=== PATIENT | male | born 1975 | race Caucasian/White ===

== ENCOUNTER 2018-06-10 02:15 | Inpatient (IN) | payer OTHER ==
[~2018-06-10] VITALS: Ht 180.3 cm; Wt 127.9 kg
[~2018-06-10 02:15] MED LIST: ATENOLOL50 M1 PO; MELATONIN5 M7 PO
--- NOTE | 2018-06-10 15:52 | Admission Core Measures ---
Acute Coronary Syndrome (CM) ACS Core Measures Acute Coronary Syndrome Diagnosis No Congestive Heart Failure (NEW) CHF Core Measures Congestive Heart Failure Diagnosis No Cerebrovascular Accident CVA Core Measures CVA/TIA Diagnosis No Venous Thromboembolism VTE Core Gera (View Protocol) VTE Risk Factors Surgery No Mechanical VTE Prophylaxis d/t N/A MechProphylax Ordered No VTE Pharm Prophylaxis d/t NA PharmProphylax ordered Problem List As ranked by this Provider includes Assessment & Plan 1. Colon cancer HOME MEDS Home Med List Atenolol 50 MG TABLET 1 TAB PO DAILY BP (Reported) Melatonin 5 MG TABLET 1 TAB PO PRN SUPPLEMENT (Reported)
--- NOTE | 2018-06-10 16:21 | Operative Report ---
Operative/Inv Procedure Report Surgery Date: 06/10/18 Name of Procedure: 1. Robotic low anterior resection with colorectal anastomosis-difficult procedure 2. Laparoscopic diverting ileostomy 3. Rigid sigmoidoscopy 4. ICG(indocyanine green) evaluation of colon perfusion Pre-Operative Diagnosis: Rectosigmoid colon cancer Post-Operative Diagnosis: Rectosigmoid colon cancer-perforated Estimated Blood Loss: 50ml to 100ml Surgeon/Nephrologist: Ortiz Cifuentes Jr., DO Anesthesia: general endotracheal tube, block Monitors: Per routine IV Fluids: 2500ml crystalloid Implants: None Urine Output: 405 cc Drains: None Specimens: 1. Rectosigmoid with tumor 2. Portion of rectum re-resection of distal margin. Stitch rouse distal edge 3. Stapler noted as most distal margin Complications: None Condition: Good Operative Indication: This is a 43-year-old gentleman who had colonoscopy for the workup of GI bleeding and change of bowel habits. He was found to have a rectosigmoid nearly obstructing mass. The mass was not passable with the colonoscope. Mass was biopsy proven to be a carcinoma. Patient's metastatic workup was negative. Patient was also noted to have a large rectal polyp which was not removed. Preop I did a flexible sigmoidoscopy to evaluate the tumor and was able to remove the polyp completely. The polyp was an adenoma with dysplasia but no invasive cancer. Operative/Procedure Note Note: On the day before the patient's surgery he did a bowel prep at home including oral laxatives and oral antibiotics. The morning of the surgery he drank 12 ounces of apple juice prior to coming to the hospital. He received the usual surgery premedication. He was taken to the operating room and placed in supine position. Patient underwent induction of general anesthesia placement of endotracheal tube and Waddell catheter. A bilateral TAP blocks performed by the anesthesia service. Patient was then converted to lithotomy position in [facility]. The patient was secured to the bed with both arms tucked. The abdomen and perineum were prepped and draped in usual fashion. We gained access to the abdominal cavity using a Veress needle technique. There is needle was inserted in the mid clavicular line just subcostal on the left and the abdomen was insufflated to 15 mmHg. THe #3 camera port was placed to the right of the umbilicus. This port was blindly placed and then the 1 2 and 4 ports were placed under direct visualization. The #4 port was a 12 mm port and the others were all 8 mm robotic ports. A right lower quadrant 8 mm stylist assistant air seal port was also placed. The patient is very large and morbidly obese sister was very little working space in the abdominal cavity. The patient was placed in 20 Trendelenburg with slight right tilt. Laparoscopic exploration did not demonstrate evidence of metastasis however the tumor at the rectosigmoid appeared perforated invading the anterior pelvic wall. Invasion appear to be at the level of the bladder. I begin my dissection here. I excised a ring of peritoneum and fat around the area of perforation so as to not violate the tumor. This was a difficult dissection and took over 2 hours. Once this was completely free I noticed a area where the tumor had full-thickness perforated the bowel. The rectosigmoid was stuck again to the sigmoid more proximally. And as I pulled on the bowel and this part of tumor fractured and there was open portion of the bowel. I oversewed this area with a 20V lock Vicryl stitch to prevent any spillage of fecal material. Next I began a medial to lateral dissection. The rectosigmoid was held anteriorly and incised the peritoneum at the level of the sacral promontory to the right of the rectosigmoid. I was able to enter the avascular space of the posterior rectum and take this dissection down to the midportion of the rectum. Working medial to laterally and freed the mesorectum from the attachments to the left ureter and the iliac vessels. I took the lateral stalks of the rectum down with the vessel sealer first to the right and then to the left to about the midportion of the rectum. I took the white line of Toldt down for the entire sigmoid and descending colon to the proximal descending colon. This was done by blunt dissection and vessels. I also mobilized the rectosigmoid and sigmoid colon off Gerota's fascia. At this point the vascular pedicle was identified. This of course is the inferior mesenteric artery pedicle. The vessels were skeletonized distal to the level of the left colic artery. A robotic 45 mm white vascular stapler was then used to divide the pedicle. The vascular stump was completely hemostatic. At this point I chose my distal site of transection. I chose a site that appeared to be about 4 cm distal to the perforation some more in the upper portion of the rectum. The mesentery was cleared here with the electrocautery and vessel sealer. Once the wall was exposed a robotic RENETTA green loaded stapler was used to divide the bowel. At this point the transected end of the specimen was grasped with a locking clamp. The pneumoperitoneum was let down and a 5 cm supraumbilical midline incision was created. The fascia was divided in the midline and a wound protector was placed through this incision. I was able to easily extract the bowel through this wound protector. I chose my proximal site of transection. The mesentery was cleared here partly with electrocautery and larger bundles of tissue were ligated and divided with 2-0 Vicryl suture. I sharply divided the bowel and remove the specimen from the field. Which was a 28 EEA stapler for the anastomosis. A handsewn pursestring was performed in the open end of the bowel and the head of the interval was placed into the lumen of the bowel. There was a large volume of solid stool in the colon proximal to the transection consistent with at least partial obstruction. The pursestring was tied snugly around the PEG of the anvil. The bowel was reduced back into the abdominal cavity. At this point ICG was injected into the circulatory system. The bowel conduit was inspected and lit up cream with ICG consistent with good circulation. Next I took the specimen and opened on the back table. It appear to had about a 1 cm distal margin from the tumor which extended several centimeters beyond the area of perforation. Was not happy with this margins are decided to re-resect some portion of the rectum. The robot was redock. I mobilized the rectum further in the avascular plane posteriorly. I came around the rectum dividing lateral pedicles again. Once the bowel was completely exposed a RENETTA blue stapler was used to divide the bowel. 2 firings were required. The staple line appeared intact but was now at the level of the mid rectum. The specimen was extracted through the wound protector. At this point I did a flexible sigmoidoscopy. There was some residual stool that was irrigated and aspirated out of the rectum. The staple line appeared intact. We filled the pelvis with sterile water and tested the staple line again which did not show evidence of bubbling. Next the EEA sizers and then the EEA stapler was passed transanally. The spike emerged to the left of midline close to the corner of the RENETTA staple line. The 2 ends of the stapler were mated and the staple was completely closed and allowed to settle for 1 minute. Stapler was fired open and retrieved. We had 2 excellent donuts on the stapling device. The rectal staple Carmen was labeled as most distal margin. As this was now a mid rectal anastomosis and the dissection was difficult I decided to divert the patient. Laparoscopically the cecum was identified and I ran the terminal ileum back about 30 cm from the ileocecal valve. I made a small mesenteric window here and pulled a umbilical tape through this window. A locking grasper was used to hold the umbilical tape. The #3 port was then chosen as the ileostomy site. A sokaogon of skin and soft tissue was excised down to the level of fascia. Patient had a very thick abdominal wall proximally 6 inches thick. It took me some time to pull the bowel up through the incision to a level that was satisfactory for an ileostmoy. The fascia had to be dilated multiple times to get the bowel through and maintain its vascularity. Laparoscopically we inspected the bowel and unfortunately it was twisted. We try to untwisted and could not do this laparoscopically. I extended our extraction incision to about 15 cm. Was able to gently pull the bowel back down untwisted and dilate the fascia but more. At this point were able to pull the bowel back through the incision to the surface of the skin. Next the fascia at the extraction site was closed with a running #1 looped PDS suture. The subcu tissue was copiously irrigated and the skin surface was closed with skin jeffy. The 4 remaining ports were closed with subcuticular 4 -0 Monocryl and then skin glue. Next large-bore Waddell catheter was pulled through the small bowel mesenteric defect where the umbilical tape had been to be used as a stoma bridge. The bowel was opened transversely and a Shavon ileostomy was created with 3-0 Vicryl suture. The tails of the Waddell catheter were tied together after being cut to the appropriate length. A Waddell catheter was also secured to the skin to secure the stoma bridge. The abdomen was cleansed and dried. A island dressing was placed over the extraction incision. A stoma appliance placed over the ileostomy. The patient tolerated the procedure well. He was extubated in the operating room and taken to recovery area in good condition. At the end of this operation all needle sponges and regimens were accounted for. Findings: 1. Colon to mid rectal anastomosis 2. Perforated rectosigmoid colon cancer 3. Good perfusion to colon conduit by ICG evaluation 4. Rectal stump and anastomotic staple lines airtight Discharge Disposition: Same Day Admissions
--- NOTE | 2018-06-10 16:38 | Patient Discharge Instructions ---
Discharge Instructions General Discharge Information You were seen/treated for: Rectosigmoid colon cancer-perforated You had these procedures: 1. Robotic low anterior resection with colorectal anastomosis-difficult procedure 2. Laparoscopic diverting ileostomy 3. Rigid sigmoidoscopy 4. ICG(indocyanine green) evaluation of colon perfusion Watch for these problems: Increased pain, fever, chills, redness, swelling or drainage from incisions Call Surgeon to remove: Shanice Do not soak the wound: Yes Other wound care: Keep incisions clean and dry Change dressings as needed daily Special Instructions: Take Lovenox daily for 1 week for clot prevention Please follow up with Dr. Sesay in 2 weeks Take Cholestyramine packet twice daily and Imodium as needed for diarrhea Diet Continue normal diet: Yes Recommended Diet: Per dietitian instructions Activity Full Activity/No Limits: No Activity Self Limited: Yes Pounds, do NOT lift more than: 10 Other activity limits: No heavy lifting or strenous activity Acute Coronary Syndrome Inclusion Criteria At DC or during hospital stay patient has or had the following: ACS DIAGNOSIS No Discharge Core Measures Meds if any: Prescribed or Continued at Discharge Meds if any: NOT Prescribed or Continued at Discharge Congestive Heart Failure Inclusion Criteria At DC or during hospital stay patient has or had the following: CHF DIAGNOSIS No Discharge Core Measures Meds if any: Prescribed or Continued at Discharge Meds if any: NOT Prescribed or Continued at Discharge Cerebrovascular accident Inclusion Criteria At DC or during hospital stay patient has or had the following: CVA/TIA Diagnosis No Discharge Core Measures Meds if any: Prescribed or Continued at Discharge Meds if any: NOT Prescribed or Continued at Discharge Venous thromboembolism Inclusion Criteria VTE Diagnosis No VTE Type NONE VTE Confirmed by (Test) NONE Discharge Core Measures - Per Current guidelines, there needs to be overlap - treatment for the first 5 days of Warfarin therapy. - If discharged on Warfarin prior to 5 days of - overlap therapy, the patient will need to be - assessed for post discharge needs including - *Post discharge parental anticoagulation - *Warfarin and/or parental anticoagulation education - *Follow up date to check INR post discharge At least 5 days overlap therapy as Inpatient No Meds if any: Prescribed or Continued at Discharge Note: Overlap Therapy is Warfarin and Anticoagulant Meds if any: NOT Prescribed or Continued at Discharge
--- NOTE | 2018-06-10 16:44 | Surgical Discharge Summary ---
Visit Information Visit Dates Admission Date: 06/10/18 Discharge Date: 06/15/18 History of Present Illness Chief Complaint: Colon cancer Medical History Cardiovascular: hypertension Gastrointestinal: Colon ca Blood Disorders: Factor V Leiden Surgical History Pertinent Surgical History: Robotic LAR, diverting ileostomy 06/10/18 Review of Systems: Refer to H&P Hospital Course Course Attending Physician: Ortiz Cifuentes Jr., DO Primary Care Physician: Dalton ABRAHAM,[facility] Course: Patient presented electively for a robotic low anterior resection and colorectal anastomosis with laparoscopic diverting ileostomy for perforated rectosigmoid colon cancer. He was placed on ERAS protocol and was maintained on IV antibitoics, Rocephin and Flagyl due to perforated colon cancer. Lovenox was given for DVT prevention due to history of Factor V Leiden. His diet was advanced and tolerated with return of ileostomy function. Wound nurse consult was obtained. His hospitalization was prolonged due to leaking ileostomy appliance, which resolved prior to discharge. Throughout his hospital course, vital signs remained stable and within normal limits, pain was adequately controlled and he was deemed appropriate for discharge home with VNA services for ostomy wound care. Allergies: Coded Allergies: No Known Allergies (06/09/18) Significant Procedures: 1. Robotic low anterior resection with colorectal anastomosis 2. Laparoscopic diverting ileostomy 3. Rigid sigmoidoscopy 4. ICG (indocyanine green) evaluation of colon perfusion Disposition Summary Disposition Principal Diagnosis: Perforated rectosigmoid colon cancer Additional Diagnosis: Same Discharge Disposition: home health services Discharge Instructions General Discharge Information Code Status: Full Code Patient's Diet: Regular, as per counterintelligence agent Patient's Activity: Ambulate Follow-Up Instructions/Appts: 1-2 weeks or sooner with concerns Medications at Discharge Discharge Medications: Continue taking these medications: Atenolol (Atenolol) 50 MG TABLET 1 Tablet ORAL DAILY Melatonin (Melatonin) 5 MG TABLET 1 Tablet ORAL as needed for SUPPLEMENT Start taking the following new medications: Oxycodone HCl (Oxycodone HCl) 5 MG TABLET 5-10 Milligram ORAL EVERY 4-6 HOURS NEEDED as needed for PAIN 7-10 Qty = 30 No Refills Instructions: . Tramadol HCl (Tramadol HCl) 50 MG TABLET 50 Milligram ORAL EVERY SIX HOURS as needed for PAIN 1-6 Qty = 30 No Refills Instructions: . Enoxaparin Sodium (Lovenox) 40 MG/0.4 ML SYRINGE 0.4 Milliliters SC DAILY Qty = 7 No Refills Instructions: . Cholestyramine/Aspartame (Questran Light Powder) 4 GRAM POWDER 1 Packet ORAL TWICE DAILY Qty = 30 No Refills Instructions: ADD AT LEAST 2-3 OZ OF WATER OR NON-CARBONATED BEVERAGE Loperamide HCl (Imodium A-D) 2 MG TABLET 2 Milligram ORAL THREE TIMES DAILY as needed for DIARRHEA Qty = 30 No Refills Acetaminophen (Tylenol Extra Strength) 500 MG TABLET 1 Tablet ORAL THREE TIMES DAILY as needed for PAIN Qty = 30 No Refills
[2018-06-10 18:18] VITALS: BP 130/70
--- NOTE | 2018-06-10 18:48 | PN- General Surgery ---
Subjective Subjective: Mild to moderate pain lower abdominal region. Recovering well from anesthesia and postoperatively. No other complaints. No nausea vomiting Objective Vital Signs and I&Os Vital Signs Date Time Temp Pulse Resp B/P B/P Pulse O2 O2 Flow FiO2 Mean Ox Delivery Rate 06/10 1818 98.7 78 18 130/70 97 Room Air Intake & Output 06/10 1600 06/10 0800 06/10 0000 06/09 1600 06/09 0800 06/09 0000 Intake Total Output Total Balance Patient 283 lb Weight Physical Exam: Well-developed well-nourished no apparent distress. HEENT: Atraumatic, extraocular motion intact Neck: Supple, no lymphadenopathy Respiratory: No respiratory distress Abdomen: Mild distention, obese. Small amount of bloody drainage on dressing. Small amount of thin bloody drainage in the ileostomy bag. No significant air in the bag. Stoma is not retracted, stoma is pink and moist Appropriate abdominal tenderness throughout Extremities: No edema, no calf pain Neuro: Alert and oriented x3 Psych: Mood affect normal, normal memory normal judgment. Skin: Warm and dry, no rash on exposed skin Assessment/Plan Assessment/Plan Postop day #0 status post Robotic low anterior resection with colorectal anastomosis, Laparoscopic diverting ileostomy, Rigid sigmoidoscopy Secondary to rectosigmoid colon cancer-perforated ERAS protocol Clears, advance diet as tolerated Continue IV fluids Continue Waddell until tomorrow Perioperative antibiotics DVT prophylaxis with Lovenox 40 mg subcu twice daily secondary to factor V Leiden ALPS for DVT ppx Entereg until bowel movement Neurontin as part of ERAS Out of bed, ambulate Pain medication as needed Monitor for return of bowel function Follow a.m. labs Dressing change postop day 2 Core Measures Venous Thromboembolism VTE Risk Factors Surgery No Mechanical VTE Prophylaxis d/t N/A MechProphylax Ordered No VTE Pharm Prophylaxis d/t NA PharmProphylax ordered
[2018-06-10 22:55] VITALS: BP 140/62
[2018-06-11 01:34] VITALS: BP 146/78
[2018-06-11 05:30] VITALS: BP 132/76
--- NOTE | 2018-06-11 07:58 | PN- General Surgery ---
Surgical Brief Attending Note Brief Attending Note: Patient is postop day 1 from robotic assisted low anterior resection with diverting loop ileostomy for perforated rectosigmoid colon cancer Patient's pain is reasonably controlled today AVSS Abdomen is soft Right lower quadrant ileostomy producing liquid stool Waddell with abundant clear urine Impression: Patient overall doing well Plan: Hep-Lock IV and advance to full liquids Keep Waddell for 1 more day second to low pelvic dissection and dissection of the bladder Please draw a routine postop labs CBCs and Chem-7 Make sure patient is on subcu Lovenox for factor V Leiden disease Continue ERAS meds : Tylenol , Neurontin, Entereg
[2018-06-11 09:53] LABS: ABSOLUTE BASOPHIL COUNT 0 /CUMM (0.0-0.2); ABSOLUTE EOSINOPHIL COUNT 0 /CUMM (0.0-0.7); ABSOLUTE GRANULOCYTE CT 12.3 /CUMM (1.4-6.5); ABSOLUTE LYMPH COUNT 1.7 /CUMM (1.2-3.4); ABSOLUTE MONOCYTE COUNT 1.6 /CUMM (0.10-0.60); BASOPHIL % 0.1 % (0.0-2.0); EOSINOPHIL % 0 % (0-5); HEMATOCRIT 41.9 % (42-52); MEAN CORPUSCULAR HGB 29.2 PG (27.0-31.0); MEAN CORPUSCULAR HGB CONC 33.5 G/DL (33.0-37.0); MEAN PLATELET VOLUME 8.2 FL (7.4-10.4); PLATELET COUNT 280 /CUMM (130-400); RBC DISTRIBUTION WIDTH 14.3 % (11.5-14.5); RED BLOOD CELL CT 4.81 /CUMM (4.70-6.10); WHITE BLOOD CELL COUNT 15.6 /CUMM (4.8-10.8)
[2018-06-11 15:27] VITALS: BP 112/64
[2018-06-11 22:16] VITALS: BP 120/72
[2018-06-12 07:26] VITALS: BP 136/80
--- NOTE | 2018-06-12 07:44 | PN- General Surgery ---
See Addendum Subjective Subjective: Patient reports crampy abdominal pain which is somewhat controlled with pain regimen. He reports intermittent nausea/dry heaving unrelated to fulls. He reports bilious drainage from his ostomy, denies gas. He reports ambulating in the halls. He reports fever yesterday, denies chills, chest pain, sob. Objective Vital Signs and I&Os Vital Signs Date Time Temp Pulse Resp B/P B/P Pulse O2 O2 Flow FiO2 Mean Ox Delivery Rate 06/12 726 98.9 71 20 136/80 95 06/11 2216 98.9 85 19 120/72 94 Room Air 06/11 2154 98.9 06/11 2010 101.4 06/11 1527 100.4 79 18 112/64 96 Room Air 06/11 0926 70 132/76 Intake & Output 06/12 0000 06/11 1600 06/11 0806/11 0000 06/10 1600 Intake Total 440 340 652 550 650 Output Total 858 462 9084 1375 250 Balance 40 60 -1048 -825 400 Intake, IV 200 100 252 500 50 Intake, Oral 240 240 400 50 600 Output, Stool 150 25 Output, Urine 974 214 6145 1350 250 Patient 283 lb Weight Physical Exam: Gen - resting comfortably in nad Cardiac - S1S2 noted Lungs - CTAB Abd - soft, obese, ileostomy appliance leaking from lateral and medial side, reinforced, stoma is red with bilious mucus drainage, midline incision closed with jeffy and matress sutures with no signs of drainge or infection, redressed, faint bowel sounds, appropriately tender evans-incisionally, no rebound or guarding noted - stack with clear urine Ext - alps in place, no edema or calf pain Current Medications: Current Medications Sig/Taras Start time Last Medication Dose Route Stop Time Status Admin Acetaminophen 1,000 MG TID 06/10 2100 AC 06/11 PO 2009 Alvimopan 12 MG Q12H 06/10 1900 AC 06/12 PO 612 Atenolol 50 MG DAILY 06/11 09 AC 06/11 PO 09 Cefazolin Sodium 2 GM IQ8 06/12 08 AC N/A 1 UNIT IV 06/13 0759 Cefazolin Sodium 2 GM IQ8 06/11 0000 DC 06/11 N/A 1 UNIT IV 06/12 0000 2320 Dextrose/Sodium 1,000 ML .Q20H 06/10 181 DC 06/10 Chloride IV 1842 Docusate Sodium 100 MG DAILY 06/11 09 AC 06/11 PO 09 Enoxaparin Sodium 40 MG BID 06/11 09 AC 06/11 SC 2155 Gabapentin 300 MG Q8 06/10 2200 AC 06/12 PO 0613 Melatonin 5 MG AT BEDTIME 06/10 2100 AC 06/11 PO 2155 Metronidazole 500 MG IQ8 06/12 0800 AC N/A 1 UNIT IV 06/13 0759 Metronidazole 500 MG IQ8 06/11 0000 DC 06/11 N/A 1 UNIT IV 06/12 0000 2351 Ondansetron HCl 4 MG Q6P PRN 06/10 181 AC 06/12 IV 0447 Oxycodone HCl 5 MG Q4-6 PRN PRN 06/10 181 AC PO Oxycodone HCl 10 MG Q4-6 PRN PRN 06/10 181 AC 06/11 PO 2010 Tramadol HCl 100 MG Q6P PRN 06/10 181 AC 06/11 PO 2158 Tramadol HCl 50 MG Q6 PRN 06/10 1615 AC 06/11 PO 1852 Results Last 48 Hours of Labs: Laboratory Tests 06/11 0800 Chemistry Sodium (137 - 145 mmol/L) 135 L Potassium (3.5 - 5.1 mmol/L) 4.4 Chloride (98 - 107 mmol/L) 103 Carbon Dioxide (22 - 30 mmol/L) 27 Anion Gap (5 - 16) 5 BUN (9 - 20 mg/dL) 10 Creatinine (0.7 - 1.2 mg/dL) 0.6 L Estimated GFR (>60 ml/min) > 60 BUN/Creatinine Ratio (7 - 25 %) 16.7 Hematology CBC w Diff NO MAN DIFF REQ WBC (4.8 - 10.8 /CUMM) 15.6 H RBC (4.70 - 6.10 /CUMM) 4.81 Hgb (14.0 - 18.0 G/DL) 14.0 Hct (42 - 52 %) 41.9 L MCV (80.0 - 94.0 FL) 87.0 MCH (27.0 - 31.0 PG) 29.2 MCHC (33.0 - 37.0 G/DL) 33.5 RDW (11.5 - 14.5 %) 14.3 Plt Count (130 - 400 /CUMM) 280 MPV (7.4 - 10.4 FL) 8.2 Gran % (42.2 - 75.2 %) 79.0 H Lymphocytes % (20.5 - 51.1 %) 10.9 L Monocytes % (1.7 - 9.3 %) 10.0 H Eosinophils % (0 - 5 %) 0 Basophils % (0.0 - 2.0 %) 0.1 Absolute Granulocytes (1.4 - 6.5 /CUMM) 12.3 H Absolute Lymphocytes (1.2 - 3.4 /CUMM) 1.7 Absolute Monocytes (0.10 - 0.60 /CUMM) 1.6 H Absolute Eosinophils (0.0 - 0.7 /CUMM) 0 Absolute Basophils (0.0 - 0.2 /CUMM) 0 Assessment/Plan Assessment/Plan 43 M w/ HTN and factor V Leiden who is POD 2 s/p robotic LAR with colorectal anastomosis and diverting ileostomy secondary to perforated rectosigmoid colon cancer with expected postop pain and nausea Cont fulls Likely advance to lfd for lunch ERAS protocol Analgeiscs/antiemetics prn Cont abx in setting of perf bowel DVT ppx - alps, lovenox 40 mg bid Entereg until stool Ostomy teaching Home meds on board OOB ambulate D/c stack today Follow a.m. labs Daily dressing changes Anticipate d/c in 24-48 hours Will d/w Dr. Cifuentes Core Measures Venous Thromboembolism VTE Risk Factors Surgery No Mechanical VTE Prophylaxis d/t N/A MechProphylax Ordered No VTE Pharm Prophylaxis d/t NA PharmProphylax ordered
[2018-06-12 12:04] LABS: ABSOLUTE BASOPHIL COUNT 0 /CUMM (0.0-0.2); ABSOLUTE EOSINOPHIL COUNT 0 /CUMM (0.0-0.7); ABSOLUTE GRANULOCYTE CT 17.5 /CUMM (1.4-6.5); ABSOLUTE LYMPH COUNT 0.9 /CUMM (1.2-3.4); ABSOLUTE MONOCYTE COUNT 1.1 /CUMM (0.10-0.60); BASOPHIL % 0.1 % (0.0-2.0); EOSINOPHIL % 0 % (0-5); GRANULOCYTE % 89.4 % (42.2-75.2); HEMATOCRIT 41.6 % (42-52); MEAN CORPUSCULAR HGB 28.5 PG (27.0-31.0); MEAN CORPUSCULAR HGB CONC 32.7 G/DL (33.0-37.0); MEAN CORPUSCULAR VOLUME 87.3 FL (80.0-94.0); MEAN PLATELET VOLUME 8.4 FL (7.4-10.4); PLATELET COUNT 285 /CUMM (130-400); RBC DISTRIBUTION WIDTH 14.6 % (11.5-14.5); RED BLOOD CELL CT 4.77 /CUMM (4.70-6.10)
[2018-06-12 12:30] LABS: WHITE BLOOD CELL COUNT 19.6 /CUMM (4.8-10.8)
[2018-06-12 14:46] VITALS: BP 140/80
[2018-06-12 22:19] VITALS: BP 142/82
[2018-06-13 06:15] VITALS: BP 126/78
--- NOTE | 2018-06-13 07:00 | PN- Student ---
Megan Encinas 06/13/18 0655: Subjective Subjective: This morning, the pt is doing well. He states that his pain in well controlled. He has been oob and ambulating over the past two days. Waddell is out, pt is voiding on his own. Pt hasn't had any additional episodes of nausea, denies vomiting as well. Tolerating his clear liquid diet over past 24 hrs. No flatus from bag yet, some bilious liquid output present. Pt's only concern at this time was his leaking ostomy bag. He denies cp,sob. Objective Objective: Physical Exam: Gen: O&Ax3, laying in bed, comfortable, in no apparent distress Lungs: CTA Heart: RRR, s1 and s2 normal Abdomen: soft, hypoactive bs, nt/nd, midline incision w/ jeffy and dressing c/ d/i. ileostomy bag leaking from lateral and inferior portions, bag reinforced with tape on all sides LE: nontender, soft, warm/dry skin, ALPS in place Results Results: Vital Signs Date Time Temp Pulse Resp B/P B/P Pulse O2 O2 Flow FiO2 Mean Ox Delivery Rate 06/13 0615 98.7 59 18 126/78 96 Room Air 06/12 2219 99.2 66 20 142/82 95 Room Air 06/12 1446 98.3 80 20 140/80 95 Room Air 06/12 0951 71 136/80 06/12 0726 98.9 71 20 136/80 95 06/11 2216 98.9 85 19 120/72 94 Room Air 06/11 2154 98.9 06/11 2010 101.4 06/11 1527 100.4 79 18 112/64 96 Room Air 06/11 0926 70 132/76 06/11 0530 99.2 70 18 132/76 96 Room Air 06/11 0134 98.5 83 18 146/78 94 Room Air 06/11 0000 94 Room Air 06/10 2255 99.4 86 20 140/62 96 06/10 2202 Room Air Room Air 06/10 1818 98.7 78 18 130/70 97 Room Air Last 24 Hours I&Os 06/13 0800 / 0000 06/12 1600 Intake Total 840 800 Output Total 300 450 Balance 540 350 Intake, IV 600 400 Intake, Oral 240 400 Output, Urine 300 450 Laboratory Tests 06/12/18 1020: CBC w Diff NO MAN DIFF REQ, RBC 4.77, MCV 87.3, MCH 28.5, MCHC 32.7 L, RDW 14.6 H, MPV 8.4, Gran % 89.4 H, Lymphocytes % 4.8 L, Monocytes % 5.7, Eosinophils % 0, Basophils % 0.1, Absolute Granulocytes 17.5 H, Absolute Lymphocytes 0.9 L , Absolute Monocytes 1.1 H, Absolute Eosinophils 0, Absolute Basophils 0 Microbiology Date/Time Procedure - Status Source Growth 06/10 0758 Urine Culture - COMP URINE ROUT Orders Procedure Date/time Status CBC WITHOUT DIFFERENTIAL 06/13 0600 Active BASIC ELECTROLYTES PLUS BUN&CR 06/13 06 Active Clear Liquid Diet 06/12 L Active CBC WITHOUT DIFFERENTIAL 06/12 07 Complete Discontinue Nursing Interventi 06/12 UNK Active Full Liquid Diet 06/11 L Complete Waddell, Insertion/Removal/Asses 06/11 1906 Active Waddell, Insertion/Removal/Asses 06/11 0943 Complete CBC WITHOUT DIFFERENTIAL 06/11 06 Complete BASIC ELECTROLYTES PLUS BUN&CR 06/11 0600 Complete Clear Liquid Diet 06/10 D Complete RT: Evaluation 06/10 2201 Active Weight 06/10 1813 Complete Vital Signs 06/10 181 Active Teach/Educate 06/10 181 Active Pain Treatment and Response 06/10 1813 Active Nutritional Intake, Monitor 06/10 1813 Active Isolation 06/10 181 Active Intake & Output 06/10 181 Active Patient Care Conference 06/10 1813 Active Activity/Ambulation 06/10 181 Active INCENTIVE SPIROMETRY TRX (GEN) 06/10 181 Complete Pathway - chart 06/10 181 Active Admit to inpatient 06/10 181 Active Patient Data 06/10 181 Active Wound Care/Dressing 06/10 181 Active VTE Mechanical Prophylaxis 06/10 181 Active Vital Signs 06/10 181 Active Teach/Educate 06/10 181 Active Intake & Output 06/10 181 Active Waddell, Insertion/Removal/Asses 06/10 1811 Active Activity/Ambulation 06/10 181 Active TRANSFER ORDERS 06/10 1558 Complete Code Status 06/10 1558 Active PATHOLOGY SPECIMEN 06/10 1417 Active CULTURE,URINE 06/10 0909 Complete THERAPIST ORDERS 06/10 UNK Complete Laboratory Tests 06/12/18 1020: CBC w Diff NO MAN DIFF REQ, RBC 4.77, MCV 87.3, MCH 28.5, MCHC 32.7 L, RDW 14.6 H, MPV 8.4, Gran % 89.4 H, Lymphocytes % 4.8 L, Monocytes % 5.7, Eosinophils % 0, Basophils % 0.1, Absolute Granulocytes 17.5 H, Absolute Lymphocytes 0.9 L , Absolute Monocytes 1.1 H, Absolute Eosinophils 0, Absolute Basophils 0 06/11/18 0800: Anion Gap 5, Estimated GFR > 60, BUN/Creatinine Ratio 16.7, CBC w Diff NO MAN DIFF REQ, RBC 4.81, MCV 87.0, MCH 29.2, MCHC 33.5, RDW 14.3, MPV 8.2, Gran % 79.0 H, Lymphocytes % 10.9 L, Monocytes % 10.0 H, Eosinophils % 0, Basophils % 0.1, Absolute Granulocytes 12.3 H, Absolute Lymphocytes 1.7, Absolute Monocytes 1.6 H, Absolute Eosinophils 0, Absolute Basophils 0 Microbiology 06/10 0758 URINE ROUT: Urine Culture - COMP Assessment/Plan Assessment: This is a 43 yo male with a PMHx of htn, factor V leiden, and colon cancer that is POD 3 s/p robotic LAR w/ diverting ileostomy. Plan: -C/w entereg, still bilious output from bag, no flatus yet -Lovenox 40 bid, alps- dvt ppx -Protonix- Gi ppx -C/w Ancef/Flagyl -c/w IV fluids -Clear liquid diet, advance as tolerated -Morning labs pending, if increase in white count, repeat CT of abdomen/pelvis -Consult wound care to see patient today, daily dressing changes -Waddell out, voiding well -Encourage ambulation, IS, Sandra Patel 06/13/18 0959: Assessment/Plan Plan: patient seen, awaiting AM labs, agree with above
[2018-06-13 10:53] LABS: ABSOLUTE BASOPHIL COUNT 0 /CUMM (0.0-0.2); ABSOLUTE EOSINOPHIL COUNT 0 /CUMM (0.0-0.7); ABSOLUTE GRANULOCYTE CT 11.8 /CUMM (1.4-6.5); ABSOLUTE LYMPH COUNT 1.8 /CUMM (1.2-3.4); ABSOLUTE MONOCYTE COUNT 1.1 /CUMM (0.10-0.60); BASOPHIL % 0.3 % (0.0-2.0); EOSINOPHIL % 0.3 % (0-5); GRANULOCYTE % 80.1 % (42.2-75.2); HEMATOCRIT 41.8 % (42-52); MEAN CORPUSCULAR HGB 28.8 PG (27.0-31.0); MEAN CORPUSCULAR HGB CONC 33.1 G/DL (33.0-37.0); MEAN PLATELET VOLUME 8.3 FL (7.4-10.4); PLATELET COUNT 276 /CUMM (130-400); RBC DISTRIBUTION WIDTH 14.4 % (11.5-14.5); WHITE BLOOD CELL COUNT 14.7 /CUMM (4.8-10.8)
--- NOTE | 2018-06-13 12:07 | PN- General Surgery ---
Surgical Brief Attending Note Brief Attending Note: WBC trending down Stoma functioning but still difficuty with fitting appliance Advance diet to fulls Stoma nurse consult (Dinora ) Stop entereg
[2018-06-13 13:52] VITALS: BP 112/60
[2018-06-13 21:12] VITALS: BP 120/70
[2018-06-14 06:20] VITALS: BP 124/60
--- NOTE | 2018-06-14 07:08 | PN- Student ---
Megan Encinas 06/14/18 0659: Subjective Subjective: No acute changes overnight with this patient. This morning he is feeling great. Is ambulating on his own. Yesterday he was advanced to full liquid diet which he tolerated well- no n/v. Pt is voiding on his own w/o difficulty. His only concern at this point is the leaking in his ileostomy bag. Objective Objective: Physical Exam: Gen: O&Ax3, laying in bed, comfortable, in no apparent distress Lungs: CTA Heart: RRR, s1 and s2 normal Abdomen: soft, hypoactive bs, nt/nd, midline incision w/ jeffy and dressing c/ d/i. ileostomy bag leaking from lateral and medial portions, bag reinforced with tape on all sides LE: nontender, soft, warm/dry skin, ALPS in place Results Results: Laboratory Tests 06/13/18 0750: Anion Gap 8, Estimated GFR > 60, BUN/Creatinine Ratio 23.3, CBC w Diff NO MAN DIFF REQ, RBC 4.80, MCV 87.0, MCH 28.8, MCHC 33.1, RDW 14.4, MPV 8.3, Gran % 80.1 H, Lymphocytes % 11.9 L, Monocytes % 7.4, Eosinophils % 0.3, Basophils % 0.3, Absolute Granulocytes 11.8 H, Absolute Lymphocytes 1.8, Absolute Monocytes 1.1 H, Absolute Eosinophils 0, Absolute Basophils 0 06/12/18 1020: CBC w Diff NO MAN DIFF REQ, RBC 4.77, MCV 87.3, MCH 28.5, MCHC 32.7 L, RDW 14.6 H, MPV 8.4, Gran % 89.4 H, Lymphocytes % 4.8 L, Monocytes % 5.7, Eosinophils % 0, Basophils % 0.1, Absolute Granulocytes 17.5 H, Absolute Lymphocytes 0.9 L , Absolute Monocytes 1.1 H, Absolute Eosinophils 0, Absolute Basophils 0 06/11/18 0800: Anion Gap 5, Estimated GFR > 60, BUN/Creatinine Ratio 16.7, CBC w Diff NO MAN DIFF REQ, RBC 4.81, MCV 87.0, MCH 29.2, MCHC 33.5, RDW 14.3, MPV 8.2, Gran % 79.0 H, Lymphocytes % 10.9 L, Monocytes % 10.0 H, Eosinophils % 0, Basophils % 0.1, Absolute Granulocytes 12.3 H, Absolute Lymphocytes 1.7, Absolute Monocytes 1.6 H, Absolute Eosinophils 0, Absolute Basophils 0 Assessment/Plan Assessment: This is 43 yo male with a PMHx of htn, factor V leiden, and colon cancer that is POD 4 s/p robotic LAR w/ diverting ileostomy. Plan: -Entereg stopped yesterday, advanced to full liquid diet, tolerated well -passing flatus into bag, still w/ billious liquid stool -Advance to reg diet, if tolerated by pt -likely can d/c IV fluids later today if tolerates reg diet -Pt will be seen by stoma nurse today -Lovenox 40 bid, alps- dvt ppx -Protonix- Gi ppx -C/w Ancef/Flagyl -Morning labs pending -Waddell out, voiding well -Encourage ambulation, IS, Dominick Prabhakar 06/14/18 0852: Assessment/Plan Plan: Seen and eval with PAFrankoS, agree with above. Pain controlled. Tolerating fulls without nausea, vomiting. Ileostomy functioning with bilious stool. Ostomy appliance still leaking around edges, Miesha to evaluate today. Cont IV abx, advance to reg diet, add cholestyramine twice daily. D/c planning.
--- NOTE | 2018-06-14 08:39 | PN- General Surgery ---
Surgical Brief Attending Note Brief Attending Note: Overall patient looks well No pain Vital signs stable and afebrile Abdomen is soft Patient tolerating diet and having ileostomy function Primary issue now is ileostomy appliance fit Plan: Advance to regular diet Add cholestyramine twice daily Patient needs convexed stoma appliance please order
[2018-06-14 08:55] LABS: ABSOLUTE BASOPHIL COUNT 0 /CUMM (0.0-0.2); ABSOLUTE EOSINOPHIL COUNT 0.1 /CUMM (0.0-0.7); ABSOLUTE GRANULOCYTE CT 7.4 /CUMM (1.4-6.5); ABSOLUTE LYMPH COUNT 1.4 /CUMM (1.2-3.4); ABSOLUTE MONOCYTE COUNT 0.9 /CUMM (0.10-0.60); BASOPHIL % 0.3 % (0.0-2.0); EOSINOPHIL % 0.9 % (0-5); GRANULOCYTE % 75.4 % (42.2-75.2); HEMATOCRIT 40.8 % (42-52); MEAN CORPUSCULAR HGB 28.8 PG (27.0-31.0); MEAN CORPUSCULAR HGB CONC 33.2 G/DL (33.0-37.0); MEAN CORPUSCULAR VOLUME 86.8 FL (80.0-94.0); MEAN PLATELET VOLUME 7.4 FL (7.4-10.4); PLATELET COUNT 318 /CUMM (130-400); RBC DISTRIBUTION WIDTH 14.5 % (11.5-14.5); WHITE BLOOD CELL COUNT 9.8 /CUMM (4.8-10.8)
[2018-06-14 14:30] VITALS: BP 110/75
[2018-06-14 21:44] VITALS: BP 120/62
[2018-06-15 05:39] VITALS: BP 120/70
--- NOTE | 2018-06-15 06:46 | PN- Student ---
See Addendum Megan Encinas 06/15/18 0644: Subjective Subjective: No acute overnight events. This morning the pt is doing great. Oob ambulating. No stack, voiding well. Passing gas, green bilious output into ilestomy bag. Pt' s pain is well controlled. Tolerating reg diet, no n/v. No further complaints at this time. Objective Objective: Physical Exam: Gen: O&Ax3, laying in bed, comfortable, in no apparent distress Lungs: CTA Heart: RRR, s1 and s2 normal Abdomen: soft, hypoactive bs, nt/nd, midline incision w/ jeffy bilious stool over incision. incision remains intact/no drainage. RN changing dressing in rooom this morning. Ileostomy bag leaking from lateral and medial portions, bag reinforced with tape on all sides LE: nontender, soft, warm/dry skin Results Results: Laboratory Tests 06/14/18 0820: Anion Gap 3 L, Estimated GFR > 60, BUN/Creatinine Ratio 22.0, CBC w Diff NO MAN DIFF REQ, RBC 4.70, MCV 86.8, MCH 28.8, MCHC 33.2, RDW 14.5, MPV 7.4, Gran % 75.4 H, Lymphocytes % 14.0 L, Monocytes % 9.4 H, Eosinophils % 0.9, Basophils % 0.3, Absolute Granulocytes 7.4 H, Absolute Lymphocytes 1.4, Absolute Monocytes 0.9 H, Absolute Eosinophils 0.1, Absolute Basophils 0 06/13/18 0750: Anion Gap 8, Estimated GFR > 60, BUN/Creatinine Ratio 23.3, CBC w Diff NO MAN DIFF REQ, RBC 4.80, MCV 87.0, MCH 28.8, MCHC 33.1, RDW 14.4, MPV 8.3, Gran % 80.1 H, Lymphocytes % 11.9 L, Monocytes % 7.4, Eosinophils % 0.3, Basophils % 0.3, Absolute Granulocytes 11.8 H, Absolute Lymphocytes 1.8, Absolute Monocytes 1.1 H, Absolute Eosinophils 0, Absolute Basophils 0 06/12/18 1020: CBC w Diff NO MAN DIFF REQ, RBC 4.77, MCV 87.3, MCH 28.5, MCHC 32.7 L, RDW 14.6 H, MPV 8.4, Gran % 89.4 H, Lymphocytes % 4.8 L, Monocytes % 5.7, Eosinophils % 0, Basophils % 0.1, Absolute Granulocytes 17.5 H, Absolute Lymphocytes 0.9 L , Absolute Monocytes 1.1 H, Absolute Eosinophils 0, Absolute Basophils 0 Assessment/Plan Assessment: This is 43 yo male with a PMHx of htn, factor V leiden, and colon cancer that is POD 5 s/p robotic LAR w/ diverting ileostomy. Plan: -Pt should be ready for discharge today- pain well controlled, ambulating, tolerating reg diet, no - n/v -Wound nurse saw pt yestereday and ordered new supplies- pt continues to have leakage -Pt will go home and have a visiting wound care nurse -C/w his reg diet -C/w Flagyl & ancef as there has been leakage of the bag- may need to go on home on short course of PO Abx -Lovenox 40 mg bid for dvt ppx- may need to go home with Lovenox d/t pmhx factor V leiden- will discuss w/ Dr. Sesay -Encourage oob/ambulation/IS -Discharge planning/intstructions Dominick Greenberg 06/15/18 0933: Assessment/Plan Plan: Seen and evaluated. Agree with PAPinky. Discharge delayed due to leaking ostomy appliance. New appliance was ordered. Dinora to reeval and place today. If leaking resolves, anticipate d/c home with hhs, oral course of antibiotics and lovenox 4 bid. Will discuss lovenox duration with Dr. Sesay. Will discuss poc with Dr. Cifuentes
[2018-06-15] MEDS ORDERED: LOVENOX40 MG/0.1 SC ×2 (11:28→14:06)
[2018-06-15] MEDS ORDERED: OXYCODONE HCL5 M1 PO ×2 (11:28→14:06)
[2018-06-15] MEDS ORDERED: TRAMADOL HCL50 M1 PO ×2 (11:28→14:06)
[2018-06-15] MEDS ORDERED: QUESTRAN LIGHT210 GM PO ×2 (13:28→14:06)
[2018-06-15] MEDS ORDERED: IMODIUM A-D2 M1 PO ×2 (13:28→14:06)
[2018-06-15] MEDS ORDERED: TYLENOL EXTRA500 M2 PO (13:30)
[2018-06-15 14:39] VITALS: BP 140/52
== END 2018-06-15 15:30 | disposition home health service (06) | DRG 330 ==
LOC: SDA 02:15 → ENRESERV 16:32 → ENTRNSPT 17:41 → 2NA 18:01 → CMPTRNSPT 18:10 → ENPENDDIS 06-15 13:39 → ENTRNSPT 06-15 15:10 → 2NA 06-15 15:30 → CMPTRNSPT 06-15 15:54
PROVIDERS: Physician Assistant; Physician Assistant Surgical
PROC: 0DTP4ZZ Resection of Rectum, Percutaneous Endoscopic Approach (ICD-10-PCS; principal; 2018-06-10)
PROC: 0DTN4ZZ Resection of Sigmoid Colon, Percutaneous Endoscopic Approach (ICD-10-PCS; 2018-06-10)
PROC: 0D1B4Z4 Bypass Ileum to Cutaneous, Percutaneous Endoscopic Approach (ICD-10-PCS; 2018-06-10)
PROC: 0DJD8ZZ Inspection of Lower Intestinal Tract, Via Natural or Artificial Opening Endoscopic (ICD-10-PCS; 2018-06-10)
DX: C19 Malignant neoplasm of rectosigmoid junction (principal); D68.51 Activated protein C resistance; I10 Essential (primary) hypertension
CPT/HCPCS: 2NAP; 36415; 36592; 82436; 87086; J0690; J1644; J1650; J2405; J2550; J2765; J3490; J7042